=== PATIENT | female | born 1960 | race Caucasian/White ===

== ENCOUNTER 2017-03-01 11:17 | Emergency (ER) | payer OTHER ==
[~2017-03-01] VITALS: Ht 172.7 cm; Wt 113.4 kg
[~2017-03-01 11:17] MED LIST: OXYC-865 PO
[2017-03-01] MEDS ORDERED: METO25TA23 PO (11:29)
[2017-03-01] MEDS ORDERED: ASPI-1471 PO (11:29)
[2017-03-01] MEDS ORDERED: CLOP75TA PO (11:29)
[2017-03-01] MEDS ORDERED: GABA-549 PO (11:29)
[2017-03-01] MEDS ORDERED: ACET-1966 PO (11:29)
[2017-03-01] MEDS ORDERED: LISI5TAB25 PO (11:29)
--- NOTE | 2017-03-01 11:32 | ER Report ---
History and Physical Time Seen By MD: 11:24 Hx. of Stated Complaint: PT STATES HURT RIBS SINCE DAY AFTER LORE HPI/ROS CHIEF COMPLAINT: Right rib pain/injury HISTORY OF PRESENT ILLNESS: Patient is a 56-year-old female who presents the ED with complaint of right rib injury that occurred about 2 weeks ago. She states that she was leaning over into her large metal garbage bin to retrieve a gift that was accidentally thrown out over [place] and felt some popping on her right lower rib area when she was leaning over. She states that she has had pain intermittently in her right lower lateral rib area since. She denies any rash or bruising. She has been taking some Tylenol for pain relief. She states that she does take some gabapentin for chronic pain. She denies any coughing or fever. She states the pain is worse with movements and deep breaths. REVIEW OF SYSTEMS: Constitutional: No fever, no chills. Cardiovascular: No chest pain, no palpitations. Respiratory: See history of present illness. No shortness of breath, no cough. Gastrointestinal: No abdominal pain, no vomiting. Musculoskeletal: See history of present illness. Skin: No rashes. Neurological: No headache. Allergies: Coded Allergies: amoxicillin (Verified Allergy, Unknown, 03/01/17) Home Meds Reported Medications Acetaminophen (TYLENOL) 325 Mg Tablet, 325 MG PO, TAB 03/01/17 Aspirin (ASPIR 81) 81 Mg Tablet.dr, 81 MG PO QDAY, TAB 03/01/17 Clopidogrel Bisulfate (CLOPIDOGREL) 75 Mg Tablet, 1 TAB PO QDAY, TAB 03/01/17 Metoprolol Succinate (METOPROLOL SUCCINATE) 25 Mg Tab.er.24h, 25 TAB PO QDAY, TAB 03/01/17 Lisinopril (LISINOPRIL) 5 Mg Tablet, 2.5 MG PO QDAY, TAB 03/01/17 Gabapentin (GABAPENTIN) 300 Mg Capsule, 300 MG PO TID, CAPSULE 03/01/17 Discontinued Scripts Oxycodone Hcl/Acetaminophen (PERCOCET 5-325 MG TABLET) 1 Each Tablet, 1 EACH PO Q4H Y for PAIN, #12 TAB 0 Refills Prov:KARINE MORRIS MD 08/27/16 Reviewed Nurses Notes: Yes Old Medical Records Reviewed: Yes Hx Substance Use Disorder: No Hx Alcohol Use: No Constitutional Vital Sign - Last 24 Hours 03/01/17 11:22 Temp 97.9 Pulse 80 Resp 18 B/P (MAP) 113/92 Pulse Ox 95 O2 Delivery Room Air Physical Exam General Appearance: The patient is alert, has no immediate need for airway protection and no signs of toxicity. Patient appears to be in no acute distress.t.] Respiratory: There are no retractions, lungs are clear to auscultation. There is pain with palpation of the right lateral inferior rib areas. No swelling or ecchymosis identified. No rash appreciated. Cardiovascular: Regular rate and rhythm. Gastrointestinal: Abdomen is soft and non tender, no masses, bowel sounds normal. Skin: Warm and dry, no rashes. Musculoskeletal: Neck is supple non tender. Extremities are nontender, nonswollen and have full range of motion. DIFFERENTIAL DIAGNOSIS: After history and physical exam differential diagnosis was considered for rib pain including rib strain, rib fracture, pneumonia, pulmonary embolism. This is an incomplete list. Medical Decision Making EKG/Imaging Imaging CXR: IMPRESSION: 1. No acute cardiopulmonary process. Report Dictated By: Pipe Esparza at 03/01/2017 12:22 PM Report E-Signed By: Pipe Esparza at 03/01/2017 12:24 PM Right Rib Xrays: IMPRESSION: 1. Findings consistent with a nondisplaced fracture of the anterolateral aspect of the right ninth rib and possibly the eighth rib. Correlate with any history of trauma. 2. No evidence of acute cardiopulmonary abnormality. 3. Findings consistent with old granulomatous disease. Report Dictated By: Lesley King MD at 03/01/2017 11:55 AM Report E-Signed By: Lesley King MD at 03/01/2017 11:58 AM ED Course/Re-evaluation ED Course Will obtain right rib x-rays. 03/01/2017 12:35:42 pm - discussed x-ray results with patient. He does appear to be a possible right 8th and 9th rib fractures are nondisplaced. Discussed this with her. We'll give her some pain medication for temporary pain relief. She should follow up with her primary care provider. She states that she does have an appointment with Dr. Christensen. Decision to Disposition Date: Mar 01, 2017 Decision to Disposition Time: 12:35 Depart Departure Latest Vital Signs Vital Signs Date Time Temp Pulse Resp B/P (MAP) Pulse Ox O2 Delivery O2 Flow Rate FiO2 03/01/17 11:22 97.9 80 18 113/92 95 Room Air Impression: Primary Impression: Right rib fracture Condition: Improved Disposition: HOME OR SELF-CARE Referrals: AUBREE CHRISTENSEN Tramadol Hcl (TRAMADOL HCL) 50 Mg Tablet 50 MG PO Q4-6H Y for prn, #12 TAB Prov: SAHIL VILLA PA-C 03/01/17 Patient Instructions: Rib Fracture (ED) Additional Instructions: Rest, ice, heat. Follow-up with primary care provider in 2-3 days. If having any worsening concerning symptoms may return to the emergency department. Problem Qualifiers Primary Impression: Right rib fracture Encounter type: initial encounter Rib fracture type: multiple ribs Fracture type: closed Qualified Codes: S22.41XA - Multiple fractures of ribs , right side, initial encounter for closed fracture SAHIL VILLA PA-C Mar 01, 2017 11:32
--- NOTE | 2017-03-01 12:02 | RADIOLOGY IMAGING REPORT ---
FAC[place] [facility] [place]IENT NAME: Lary Sierra : 1960 MR: [id number] V: [id number] EXAM DATE: ORDERING PHYSICIAN: SAHIL VILLA TECHNOLOGIST: Location: [facility] Patient: Lary Sierra : 1960 Visit/Account:[id number] Date of Sevice: 03/01/2017 RIBS RIGHT HISTORY: Right rib/lateral lower pain since 02/14 ADDITIONAL HISTORY: None. COMPARISON: Chest x-ray 08/27/2016 FINDINGS: Frontal view the chest and 2 coned-down views of the right ribs were obtained. A BB has been placed at the site of the patient's pain. There is a minimally displaced fracture involving the anterolater al aspect of the right ninth rib and possibly the eighth rib as well. Correlate with any history of trauma. These were not clearly present on the previous chest x-ray. Cardiomegaly mediastinal silhouette is within normal limits. There is no infiltrate or pleural effus ion. No pneumothorax. Pulmonary vasculature is normal. Small granulomas are noted bilaterally. IMPRESSION: 1. Findings consistent with a nondisplaced fracture of the anterolateral aspect of the right ninth r ib and possibly the eighth rib. Correlate with any history of trauma. 2. No evidence of acute cardiopulmonary abnormality. 3. Findings consistent with old granulomatous disease. Report Dictated By: Lesley King MD at 03/01/2017 11:55 AM Report E-Signed By: Lesley King MD at 03/01/2017 11:58 AM WSN:[email or web address]
--- NOTE | 2017-03-01 12:28 | RADIOLOGY IMAGING REPORT ---
FACILITY: [facility] - [place] PATIENT NAME: Lary Sierra : 1960 MR: [id number] V: [id number] EXAM DATE: ORDERING PHYSICIAN: SAHIL VILLA TECHNOLOGIST: Location: [facility] Patient: Lary Sierra : 1960 Visit/Account:[id number] Date of Sevice: 03/01/2017 2 VIEWS CHEST INDICATION: Right rib lateral lower chest pain. COMPARISON: 08/27/2016. FINDINGS: Cardiomediastinal silhouette and pulmonary vessels within normal limits. There is no focal infiltrate or lobar consolidation. There is no pneumothorax or pleural effusion. Stable calcified granuloma seen in both lungs. No new nodules. Upper abdomen is unremarkable. No acute bony abnormality. IMPRESSION: 1. No acute cardiopulmonary process. Report Dictated By: Pipe Esparza at 03/01/2017 12:22 PM Report E-Signed By: Pipe Esparza at 03/01/2017 12:24 PM WSN:[id number]
[2017-03-01 12:30] VITALS: BP 123/83
[2017-03-01] MEDS ORDERED: TRAM-420 PO (12:37)
== END 2017-03-01 12:40 | disposition home or self-care (01) ==
LOC: ER 11:34
DX: S22.41XA Multiple fractures of ribs, right side, initial encounter for closed fracture (principal)
CPT/HCPCS: 71046; 71100; 99283